=== PATIENT | female | born 1980 | race Caucasian/White ===

== ENCOUNTER 2017-04-29 04:36 | Emergency (ER) | payer MEDICAID, OTHER | END 2017-04-29 07:10 | disposition home or self-care (01) | LOC: FTE 04:36 | DX: J20.9 Acute bronchitis, unspecified (principal) | CPT/HCPCS: 99284; Z7502 ==

== ENCOUNTER → 2018-06-18 23:56 | Emergency (ER) | payer OTHER, MEDICAID | END | disposition home or self-care (01) | LOC: E/R 23:56 → FTE 23:56 | DX: J40 Bronchitis, not specified as acute or chronic (principal); J32.9 Chronic sinusitis, unspecified | CPT/HCPCS: 99283 ==